=== PATIENT | male | born 1950 | race Caucasian/White ===

== ENCOUNTER 2019-09-14 16:14 | Emergency (ER) | payer OTHER, MEDICAID ==
[~2019-09-14] VITALS: Ht 167.6 cm; Wt 63.5 kg
[2019-09-14 16:25] VITALS: Ht 167.6 cm; Wt 63.5 kg
[2019-09-14 17:36] LABS: PLATELET COUNT 176 x10^3mcL (130-400)
[2019-09-14 17:40] LABS: BASOPHIL % 0 % (0-2); RED CELL DISTRIBUTION WIDTH 16.9 % (11.5-14.5)
[2019-09-14 17:51] LABS: ALKALINE PHOSPHATASE 97 U/L (46-116); ALT/SGPT 21 U/L (16-63); AST/SGOT 47 U/L (15-37); BILIRUBIN TOTAL 0.2 mg/dL (0.20-1.00); CARBON DIOXIDE 21.2 mmol/L (21-32); CHLORIDE SERUM 97 mmol/L (98-107); GLUCOSE SERUM 125 mg/dL (74-106); POTASSIUM SERUM 4.2 mmol/L (3.5-5.1); SODIUM SERUM 131 mmol/L (136-145); TOTAL PROTEIN, SERUM 7.1 g/dL (6.4-8.2)
[2019-09-14 17:59] LABS: ALBUMIN 3.3 g/dL (3.4-5.0); GFR1 15 mL/min
[2019-09-14 18:01] LABS: CREATININE SERUM 4.2 mg/dL (0.7-1.3)
[2019-09-14 19:06] LABS: microscopic required? YES; urine erythrocyte 3+ (NEGATIVE)
[2019-09-14 19:13] VITALS: BP 110/71
[2019-09-14 19:22] LABS: AMPHETAMINE QUAL UR NONE DETECTED (See below)
== END 2019-09-14 20:35 | disposition home or self-care (01) ==
LOC: ED 16:14
PROVIDERS: Specialist
DX: T40.1X1A Poisoning by heroin, accidental (unintentional), initial encounter (principal); L03.114 Cellulitis of left upper limb; F17.210 Nicotine dependence, cigarettes, uncomplicated; Y92.89 Other specified places as the place of occurrence of the external cause
CPT/HCPCS: 36415; 99406; G0480; J0696; J7060